=== PATIENT | female | born 1995 | race Caucasian/White ===

== ENCOUNTER 2017-08-11 17:36 | Emergency (ER) | payer MEDICAID ==
[~2017-08-11] VITALS: Ht 157.5 cm; Wt 57.6 kg
[2017-08-11 18:05] VITALS: BP 127/73
== END 2017-08-11 19:35 | disposition left against medical advice (07) ==
LOC: ER 17:47
DX: O26.892 Other specified pregnancy related conditions, second trimester (principal); R51 Headache; Z3A.15 15 weeks gestation of pregnancy; Z53.21 Procedure and treatment not carried out due to patient leaving prior to being seen by health care provider

== ENCOUNTER 2017-08-23 16:40 | Emergency (ER) | payer MEDICAID ==
[~2017-08-23] VITALS: Ht 157.5 cm; Wt 57.6 kg
[2017-08-23 17:28] VITALS: BP 135/73
== END 2017-08-23 17:39 | disposition home or self-care (01) ==
LOC: ER 16:43
DX: O26.892 Other specified pregnancy related conditions, second trimester (principal); J01.10 Acute frontal sinusitis, unspecified